=== PATIENT | female | born 1950 | race Caucasian/White ===

== ENCOUNTER 2018-11-27 15:06 | Emergency (ER) | payer MEDICARE ==
--- NOTE | 2018-11-27 15:27 | ED Physician Documentation ---
PD HPI HEENT FB - History obtained from History obtained from: Patient - History of Present Illness Timing - onset: Today (She felt like may be an insect flew in her right ear prior to arrival. It was buzzing a lot, now it does not seem to be there anymore.) Review of Systems Constitutional: reports: Reviewed and negative Nose: reports: Reviewed and negative Throat: reports: Reviewed and negative PD ED PE NORMAL - Vitals Vital signs reviewed: Yes - General General: Alert and oriented X 3, No acute distress - HEENT HEENT: Other (There is no foreign object in the right ear canal) - Neuro Neuro: Alert and oriented X 3, Normal speech Departure - Departure Disposition: 01 Home, Self Care Clinical Impression: Ear foreign body Qualifiers: Encounter type: initial encounter Laterality: right Qualified Code(s): T16.1XXA - Foreign body in right ear, initial encounter Condition: Good Record reviewed to determine appropriate education?: Yes Instructions: ED Foreign Body Ear Canal Comments: There is no foreign object in your right ear canal at this juncture. Return for new or worsening symptoms.
[2018-11-27 15:30] VITALS: BP 180/94
== END 2018-11-27 15:33 | disposition home or self-care (01) ==
LOC: ED 15:06
DX: Z03.89 Encounter for observation for other suspected diseases and conditions ruled out (principal)
CPT/HCPCS: 99281; 99282